=== PATIENT | male | born 2000 | race Caucasian/White ===

== ENCOUNTER 2023-03-27 21:02 | Emergency (ER) | payer OTHER ==
[~2023-03-27] VITALS: Ht 167.6 cm; Wt 92.1 kg
[2023-03-27 21:41] VITALS: BP 126/73; PULSE 55; RESP 16; TEMP 97.7; O2SAT 99
[2023-03-27] MEDS ORDERED: TETRACAINE HCL/PF 0.5% OPTH 4 ML BTL OP ONE (22:20)
[2023-03-27] MEDS ORDERED: FLUORESCEIN OPTH STRIP 1 MG OP ONE (22:20)
[2023-03-27] MEDS ORDERED: FLUORESCEIN OPTH STRIP 1 MG ONE (23:24)
[2023-03-27] MEDS ORDERED: TETRACAINE HCL/PF 0.5% OPTH 4 ML BTL ONE (23:24)
[2023-03-28] MEDS ORDERED: NAPR-54 PO (00:23)
[2023-03-28] MEDS ORDERED: TOBR5SOL38 OP (00:23)
[2023-03-28] MEDS ORDERED: KETOROLAC 30 MG/ML VIAL IM ONE (00:25)
[2023-03-28 01:05] VITALS: BP 118/79; PULSE 60; RESP 16; O2SAT 100
== END 2023-03-28 01:05 | disposition home or self-care (01) ==
LOC: MED 21:02
DX: H10.9 Unspecified conjunctivitis (principal); Z79.899 Other long term (current) drug therapy
CPT/HCPCS: 96372; 99283; J1885